=== PATIENT | female | born 1970 | race Caucasian/White ===

== ENCOUNTER 2018-09-12 17:35 | Emergency (ER) | payer OTHER ==
[~2018-09-12] VITALS: Ht 154.9 cm; Wt 55.5 kg
[~2018-09-12 17:35] MED LIST: ALBU8.5H8 INH; AZIT250T PO; BACTDS PO; CEPH-443 PO; CEPH500C PO; HYDR-3498 PO; IBUP-1542 PO
[2018-09-12 17:37] VITALS: Ht 154.9 cm; Wt 55.5 kg
[2018-09-12] MEDS ORDERED: KETOROLAC 30 MG INJ IM STA (18:41)
[2018-09-12] MEDS ORDERED: CYCL10TA7 PO (22:09)
[2018-09-12] MEDS ORDERED: ACET500C5 PO (22:09)
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
[2018-09-12 22:30] VITALS: BP 141/61; PULSE 69; RESP 18
== END 2018-09-12 22:31 | disposition home or self-care (01) ==
LOC: FTE 17:35
DX: M54.2 Cervicalgia (principal); F17.210 Nicotine dependence, cigarettes, uncomplicated; M54.5 Low back pain; R07.9 Chest pain, unspecified
CPT/HCPCS: 71045; 72040; 72100; 73590; 73610; 73630; 81025; J1885; 96372

== ENCOUNTER 2019-02-01 05:59 | Emergency (ER) | payer OTHER ==
[~2019-02-01] VITALS: Ht 157.5 cm; Wt 54.2 kg
[~2019-02-01 05:59] MED LIST changes: +ACET500C5 PO; +CYCL10TA7 PO
[2019-02-01 06:02] VITALS: BP 15/73; PULSE 82; RESP 18; Ht 157.5 cm; Wt 54.2 kg
[2019-02-01] MEDS ORDERED: CYCL10TA7 PO (06:23)
[2019-02-01] MEDS ORDERED: NAPR-985 PO (06:23)
[2019-02-01] MEDS ORDERED: IBUPROFEN 800 MG TAB PO ONE (06:30)
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
== END 2019-02-01 07:18 | disposition home or self-care (01) ==
LOC: FTE 05:59
DX: M54.5 Low back pain (principal); F17.210 Nicotine dependence, cigarettes, uncomplicated
CPT/HCPCS: Z7502; Z7610; 99283